=== PATIENT | female | born 1985 | race Caucasian/White ===

== ENCOUNTER 2020-08-21 14:01 | Emergency (ER) | payer OTHER ==
[~2020-08-21 14:01] MED LIST: BACTRIM DS TAB1 EACH PO; BACTROBAN OINT22 GM EXT; CLEOCIN HCL300 MG PO; CLEOCIN T30 GM TP; CLINDAMYCIN HC300 MG PO; IBUPROFEN600 MG PO; NAPROSYN500 MG PO; TORADOL 10 MG T10 MG PO; VIBRAMYCIN100 MG PO; Viscous lidocaine2% TOP
[2020-08-21] MEDS ORDERED: CYCLOBENZAPRINE10 MG PO (16:50)
[2020-08-21] MEDS ORDERED: NAPROSYN500 MG PO (16:50)
== END 2020-08-21 17:46 | disposition home or self-care (01) ==
LOC: ER1 14:01
DX: S29.012A Strain of muscle and tendon of back wall of thorax, initial encounter (principal); I10 Essential (primary) hypertension; R20.0 Anesthesia of skin; F17.200 Nicotine dependence, unspecified, uncomplicated; Z86.19 Personal history of other infectious and parasitic diseases; X50.9XXA Other and unspecified overexertion or strenuous movements or postures, initial encounter; Y92.009 Unspecified place in unspecified non-institutional (private) residence as the place of occurrence of the external cause
CPT/HCPCS: 96372; 99283; J1885; J2360

== ENCOUNTER 2020-10-19 23:01 | Emergency (ER) | payer OTHER ==
[~2020-10-19 23:01] MED LIST changes: +CYCLOBENZAPRINE10 MG PO
[2020-10-20] MEDS ORDERED: COLCHICINE0.6 M1 PO (00:39)
== END 2020-10-20 00:49 | disposition home or self-care (01) ==
LOC: ER1 23:01
DX: M10.9 Gout, unspecified (principal); F17.200 Nicotine dependence, unspecified, uncomplicated; Z88.5 Allergy status to narcotic agent; Z88.1 Allergy status to other antibiotic agents
CPT/HCPCS: 73630; 99283

== ENCOUNTER 2020-10-29 16:15 | Emergency (ER) | payer OTHER ==
[~2020-10-29 16:15] MED LIST changes: +COLCHICINE0.6 M1 PO
== END 2020-10-29 20:00 | disposition home or self-care (01) ==
LOC: ER1 16:15
DX: R55 Syncope and collapse (principal); I10 Essential (primary) hypertension; Z88.5 Allergy status to narcotic agent; Z88.1 Allergy status to other antibiotic agents
CPT/HCPCS: 71045; 93005; 99284

== ENCOUNTER 2020-12-24 13:55 | Emergency (ER) | payer OTHER | END 2020-12-24 16:10 | disposition left against medical advice (07) | LOC: ER1 13:55 | DX: Z53.21 Procedure and treatment not carried out due to patient leaving prior to being seen by health care provider (principal) ==

== ENCOUNTER 2020-12-24 18:48 | Emergency (ER) | payer OTHER | END 2020-12-24 20:50 | disposition home or self-care (01) | LOC: ER1 18:48 | DX: Z53.21 Procedure and treatment not carried out due to patient leaving prior to being seen by health care provider (principal) ==

== ENCOUNTER 2021-03-08 07:07 | Emergency (ER) | payer OTHER ==
[2021-03-08] MEDS ORDERED: PYRIDIUM200 MG PO (09:02)
[2021-03-08] MEDS ORDERED: CEFDINIR300 MG PO (09:02)
[2021-03-08] MEDS ORDERED: ONDANSETRON ODT4 MG SL (09:02)
== END 2021-03-08 09:08 | disposition home or self-care (01) ==
LOC: ER1 07:07
DX: N39.0 Urinary tract infection, site not specified (principal); I10 Essential (primary) hypertension; F17.210 Nicotine dependence, cigarettes, uncomplicated; Z90.49 Acquired absence of other specified parts of digestive tract; Z88.5 Allergy status to narcotic agent; Z88.1 Allergy status to other antibiotic agents
CPT/HCPCS: 81001; 84703; 99284

== ENCOUNTER 2021-08-25 20:59 | Emergency (ER) | payer OTHER ==
[~2021-08-25 20:59] MED LIST changes: +CEFDINIR300 MG PO; +ONDANSETRON ODT4 MG SL; +PYRIDIUM200 MG PO
[2021-08-25 21:54] LABS: HEMOGLOBIN 13.9 gm/dl (12.3-15.3); RED BLOOD COUNT 5.48 M/UL (4.00-5.10); WHITE BLOOD COUNT 9.9 K/UL (4.5-11.0)
[2021-08-25 22:06] LABS: BUN/CREATININE RATIO 19 (0-10)
== END 2021-08-26 00:10 | disposition left against medical advice (07) ==
LOC: ER1 20:59
PROVIDERS: Physician Assistant Medical
DX: R07.89 Other chest pain (principal); R00.2 Palpitations; R06.02 Shortness of breath; F17.210 Nicotine dependence, cigarettes, uncomplicated; Z20.822 Contact with and (suspected) exposure to COVID-19
CPT/HCPCS: 71045; 80053; 82550; 82553; 83874; 84439; 84443; 84484; 85025; 85379; 93005; 99283; U0002

== ENCOUNTER 2021-10-21 21:43 | Emergency (ER) | payer OTHER | END 2021-10-22 00:59 | disposition admitted as inpatient to this hospital (09) | LOC: ER1 21:43 | DX: Z53.21 Procedure and treatment not carried out due to patient leaving prior to being seen by health care provider (principal) ==

== ENCOUNTER 2021-11-18 02:23 | Emergency (ER) | payer OTHER ==
[~2021-11-18 02:23] MED LIST changes: +AMOX TR-K CLV1 EAC4 PO; +DIFLUCAN150 MG PO; +LOPRESSOR 25 MG25 MG PO; +ZOFRAN 4 MG TAB4 MG PO
[2021-11-18 03:03] LABS: HEMOGLOBIN 13.1 gm/dl (12.3-15.3); RED BLOOD COUNT 5.39 M/UL (4.00-5.10); WHITE BLOOD COUNT 11.6 K/UL (4.5-11.0)
[2021-11-18 03:19] LABS: BUN/CREATININE RATIO 16 (0-10)
[2021-11-18] MEDS ORDERED: BACTROBAN OINT22 GM EXT (04:07)
== END 2021-11-18 04:22 | disposition home or self-care (01) ==
LOC: ER1 02:23
PROVIDERS: Physician Assistant Medical
DX: L73.2 Hidradenitis suppurativa (principal); I10 Essential (primary) hypertension; F17.210 Nicotine dependence, cigarettes, uncomplicated; Z88.1 Allergy status to other antibiotic agents; Z88.5 Allergy status to narcotic agent
CPT/HCPCS: 80053; 85025; 99283

== ENCOUNTER 2021-11-22 08:17 | Emergency (ER) | payer OTHER ==
[2021-11-22 09:33] LABS: HEMOGLOBIN 12.6 gm/dl (12.3-15.3); RED BLOOD COUNT 5.19 M/UL (4.00-5.10); WHITE BLOOD COUNT 10.7 K/UL (4.5-11.0)
[2021-11-22 09:40] LABS: BUN/CREATININE RATIO 12 (0-10)
== END 2021-11-22 12:20 | disposition home or self-care (01) ==
LOC: ER1 08:17
PROVIDERS: Emergency Medicine
DX: R55 Syncope and collapse (principal); S01.311A Laceration without foreign body of right ear, initial encounter; R06.00 Dyspnea, unspecified; R53.83 Other fatigue; I10 Essential (primary) hypertension; Z88.1 Allergy status to other antibiotic agents; Z88.5 Allergy status to narcotic agent; W01.10XA Fall on same level from slipping, tripping and stumbling with subsequent striking against unspecified object, initial encounter
CPT/HCPCS: 70450; 72125; 80053; 82550; 82553; 83735; 83880; 84439; 84443; 84484; 84703; 85025; 93005; 99285; Q9967

== ENCOUNTER 2021-11-24 22:03 | Emergency (ER) | payer OTHER ==
[2021-11-24 22:51] LABS: HEMOGLOBIN 12.9 gm/dl (12.3-15.3); RED BLOOD COUNT 5.25 M/UL (4.00-5.10); WHITE BLOOD COUNT 10.6 K/UL (4.5-11.0)
[2021-11-24 23:09] LABS: BUN/CREATININE RATIO 18 (0-10)
[2021-11-25] MEDS ORDERED: MACROBID 100 M100 MG PO (02:59)
[2021-11-25] MEDS ORDERED: VISTARIL 50 MG50 MG PO (02:59)
== END 2021-11-25 03:40 | disposition home or self-care (01) ==
LOC: ER1 22:03
PROVIDERS: Student in an Organized Health Care Education/Training Program
DX: R06.00 Dyspnea, unspecified (principal); R06.4 Hyperventilation; R55 Syncope and collapse; S40.012A Contusion of left shoulder, initial encounter; N39.0 Urinary tract infection, site not specified; F17.200 Nicotine dependence, unspecified, uncomplicated; Z88.1 Allergy status to other antibiotic agents; Z88.5 Allergy status to narcotic agent; X58.XXXA Exposure to other specified factors, initial encounter
CPT/HCPCS: 71045; 73030; 80053; 81001; 82550; 82553; 84484; 84703; 85025; 85379; 87086; 93005; 99285; Q0177